=== PATIENT | male | born 1935 | race Asian ===

== ENCOUNTER 2018-07-10 09:00 | Emergency (ER) | payer OTHER, BC ==
[2018-07-10 09:05] VITALS: Ht 170.2 cm
[2018-07-10 10:33] LABS: BASOPHIL % 0.4 % (0-2); PLATELET COUNT 209 x10^3mcL (130-400)
[2018-07-10 10:36] LABS: RED CELL DISTRIBUTION WIDTH 16.4 % (11.5-14.5)
[2018-07-10 11:13] LABS: ALBUMIN 3.5 g/dL (3.4-5.0); ALKALINE PHOSPHATASE 222 U/L (46-116); ALT/SGPT 27 U/L (16-63); AST/SGOT 24 U/L (15-37); BILIRUBIN TOTAL 0.58 mg/dL (0.20-1.00); C REACTIVE PROTEIN 1.6 mg/dL (<=0.9); CALCIUM 8.2 mg/dL (8.5-10.1); CARBON DIOXIDE 22.5 mmol/L (21-32); CHLORIDE SERUM 95 mmol/L (98-107); GLUCOSE SERUM 195 mg/dL (74-106); SODIUM SERUM 136 mmol/L (136-145); TOTAL PROTEIN, SERUM 8.1 g/dL (6.4-8.2)
[2018-07-10 11:24] LABS: POTASSIUM SERUM 5.5 mmol/L (3.5-5.1)
[2018-07-10 11:26] LABS: CREATININE SERUM 9.4 mg/dL (0.7-1.3)
[2018-07-10 11:36] VITALS: BP 125/85
[2018-07-10 11:45] LABS: FREE T4 0.87 ng/dL (0.76-1.46); FREE THYROXINE INDEX 1.9 ug/dL (1.4-4.5); T4(THYROXINE) 5.8 ug/dL (4.7-13.3)
[2018-07-10 11:47] LABS: ERYTHROCYTE SED RATE 67 mm/hr (0-20)
[2018-07-10 11:48] LABS: CK-MB 0.7 ng/mL (0-3.6)
[2018-07-10 12:08] LABS: T3 TOTAL 0.48 ng/mL
== END 2018-07-10 11:36 | disposition home or self-care (01) ==
LOC: ED 09:00
PROVIDERS: Specialist
DX: S22.32XA Fracture of one rib, left side, initial encounter for closed fracture (principal); I12.9 Hypertensive chronic kidney disease with stage 1 through stage 4 chronic kidney disease, or unspecified chronic kidney disease; E11.22 Type 2 diabetes mellitus with diabetic chronic kidney disease; N18.9 Chronic kidney disease, unspecified; E78.00 Pure hypercholesterolemia, unspecified; I48.2 Chronic atrial fibrillation; W18.39XA Other fall on same level, initial encounter; Y93.89 Activity, other specified; Y92.89 Other specified places as the place of occurrence of the external cause; Y99.8 Other external cause status
CPT/HCPCS: 36415; 36600; 84439; Q0092